=== PATIENT | male | born 1970 | race Caucasian/White ===

== ENCOUNTER 2024-11-12 17:06 | Emergency (ER) | payer BC, SELFPAY ==
[2024-11-12 17:19] VITALS: BP 162/94
[2024-11-12 17:49] LABS: % Basophils 0.9 % (0-2); % Eosinophils 1.4 % (0-6); % Immature Granulocytes 0.7 % (0-0.5); % Lymphocytes 24.6 % (20.5-51.1); % Monocytes 9.4 % (1.7-9.3); Absolute Basophils 0.1 10^3/uL (0-0.2); Absolute Eosinophils 0.1 10^3/uL (0-0.7); Absolute Immature Granulocytes 0.1 10^3/uL (0-0.05); Absolute Monocytes 0.8 10^3/uL (0.1-0.6); Absolute Neutrophils 5.1 10^3/uL (1.4-6.5); Hematocrit 50.3 % (39.0-52.0); Hemoglobin 17.5 g/dL (13.0-18.0); Mean Corp Hgb Conc. 34.8 g/dL (33.0-37.0); Mean Corpuscular Hgb 30.3 pg (27.0-31.0); Mean Corpuscular Volume 87.2 fL (80.0-94.0); Mean Platelet Volume 9.7 fL (7.4-10.4); Nucleated Red Blood Cells % 0 % (-); Platelet Count 205 10^3/uL (130-400); Red Blood Cell Count 5.77 10^6/uL (4.70-6.10); Red Cell Dist. Width 12.7 % (11.5-14.5)
[2024-11-12 18:04] LABS: ALT (SGPT) 64 U/L (0-50); AST (SGOT) 43 U/L (17-59); Albumin 4.2 g/dl (3.5-5.0); Alkaline Phosphatase 54 U/L (38-126); Blood Urea Nitrogen 14 mg/dl (9-20); Calcium 9.2 mg/dl (8.4-10.2); Carbon Dioxide 23 mmol/L (22-30); Chloride 104 mmol/L (98-107); Glucose 125 mg/dl (70-99); Potassium 4.7 mmol/L (3.5-5.1); Sodium 136 mmol/L (135-145); Total Bilirubin 0.5 mg/dl (0.2-1.3); Total Protein 6.8 g/dl (6.3-8.2); eGFR > 60.00
[2024-11-12 18:15] LABS: Troponin I 0.012 ng/ml
[2024-11-12 20:38] VITALS: BP 148/97
[2024-11-12 20:40] VITALS: BMI 37.8
--- NOTE | 2024-11-12 20:58 | ED.GENMED ---
History of Present Illness
General
Chief Complaint: Chest Pain
Source: patient
Exam Limitations: none
Time Seen by Provider: 11/12/24 20:48
History of Present Illness
History of Present Illness:
See MDM
Past History
Past History
ED Past Medical History: Other (DVT)
ED Past Surgical History: Orthopedic
Social History
Tobacco: Non-smoker
Alcohol: None
Phy Exam
Physical Exam
Physical Exam:
See MDM
Scores
Heart Score for Chest Pain Patients
STEMI patient?: No
History: Slightly or Non-Suspicious
ECG: Normal
Age: >45 - <65 years
Risk Factors: 1 or 2 Risk Factors
Troponin: </= Normal Limit
Heart Score for Chest Pain Patients: 2
Heart Score Risk: 2.5% MACE over next 6 weeks
Course
Orders/Labs/Results
Orders:
Orders
11/12/24 17:14
Electrocardiogram (*1) Urgent
Reason for Study: Chest Pain
EKG- Treatment ONCE
11/12/24 17:35
Complete Blood Count/With Diff Urgent
Comprehensive Metabolic Panel Urgent
Troponin I Urgent
11/12/24 21:16
Troponin I Urgent
Abnormal Lab Results
11/12/24
17:35
Abs Immat Gran (auto) 0.1 H 10^3/uL
(0-0.05)
Absolute Monos (auto) 0.8 H 10^3/uL
(0.1-0.6)
Immature Gran % 0.7 H %
(0-0.5)
Monocytes % 9.4 H %
(1.7-9.3)
Glucose 125 H mg/dl
(70-99)
ALT 64 H U/L
(0-50)
11/12/24 17:35
11/12/24 17:35
Vital Signs
Initial and Last Documented VS:
Initial Vital Signs
Temp Pulse Resp BP Pulse Ox
98.5 F 98 18 162/94 98
11/12/24 17:19 11/12/24 17:19 11/12/24 17:19 11/12/24 17:19 11/12/24 17:19
Last Documented Vital Signs
Temp Pulse Resp BP Pulse Ox
98.5 F 86 10 162/94 97
11/12/24 17:19 11/12/24 20:30 11/12/24 20:30 11/12/24 17:19 11/12/24 20:40
MDM/Problems Addressed
Differential Diagnosis Includes:
HPI and MDM Narrative:
54-year-old male presenting with resolved chest pain. Around 3 PM, he was waxing his car and started to develop chest pain. Patient is already get worried that this heart related symptoms are not worse with exertion. On arrival, symptoms have
improved and he is currently chest pain-free. EKG negative and troponin negative. Given duration of symptoms, will obtain second troponin. He states this happened a couple years ago when he had a stress test which was negative
Physical exam
General: Well appearing and non-toxic
HEENT: protecting airway
Neck: appears supple
CV: No evidence of cyanosis. Regular rate and rhythm
Resp: No accessory muscle use
Abd: Non-distended
Extremities: No deformities. No leg edema or tenderness
Neuro: alert
Psych: Normal affect
Skin: Intact
Problems Addressed including Acute and Chronic Conditions affecting care:
1. Resolved chest pain
Acuity: acute
Prognosis: stable
Details: Likely musculoskeletal. Will obtain 2 troponin rule out
Updates
Troponin negative x 2. Patient remains symptom-free and feels comfortable going home.
Differential Diagnosis (but not limited to): Noncardiac chest pain, ACS, musculoskeletal pain
Testing considered: Chest x-ray but all symptoms resolve
Drug therapy (if applicable): OTC meds, please see d/c instruction regarding Rx drugs
Amount and/or Complexity of Data Reviewed
Clinical info obtained from: Patient
External data reviewed: N/A
Labs I independently reviewed (but not limited to): Normal troponin
Radiology: N/A
Pulse Ox: not hypoxic
EKG independently reviewed: N/A
Sliver Former: N/A
Critical Care: N/A
Risk of Complication:
Social Determinants of health: Good social support
Discussed with other providers: N/A
Escalation of Care includes Admit/Obs: After being observed in the Emergency Department, pt stable for discharge.
Occasional wrong word or 'sound a like' substitutions may have occurred due to the inherent limitations of voice recognition software. Read the chart carefully and recognize, using context, where substitutions have occurred.
*Critical Care Note
Total Time (30-74mins, 75-104mins- exclusive of procedures): Not Applicable
ED Attending Note
-
Portions of this chart may have been created with voice recognition software.� Occasional wrong word or��sound alike� substitutions may have occurred due to the inherent limitations of voice recognition software.
Discharge Plan
Departure
Patient Disposition: Home (Routine Discharge)
Date of Disposition: 11/12/24
Time of Disposition: 21:57
Patient with high blood pressure during this ER visit?: Yes
Discharge Problem:
Chest pain
Instructions: Chest Pain PCP Follow Up, BLOOD PRESSURE
Referrals:
Osbaldo Bull MD [Family Provider] -
Activity Restrictions/Additional Instructions:
Please return for any worsening symptoms.
You may return at any time if you have further concerns.
Please follow up with your doctor at the first available appointment, preferably this week.
Thank you for choosing [facility].
Interventions
Interventions:
*Risk Screen - Suicide Last Done: 11/12/24 17:20
*General Assessment Last Done: 11/12/24 17:19
*Neglect/Abuse Screening Last Done: 11/12/24 17:19
ED- Fall Risk Assessment Last Done: 11/12/24 20:40
*ED COVID-19 Vaccine History Last Done: 11/12/24 17:19
ED- Cardiac Assessment Last Done: 11/12/24 20:40
Discharge Date and Time
Print Language: KOREAN
[2024-11-12 21:49] LABS: Troponin I 0.013 ng/ml
== END 2024-11-12 22:30 | disposition home or self-care (01) ==
LOC: EMR 17:06
PROVIDERS: EMERGENCY PHYSICIAN Student in an Organized Health Care Education/Training Program; FAMILY PHYSICIAN Family Medicine
DX: R07.9 Chest pain, unspecified (principal); R03.0 Elevated blood-pressure reading, without diagnosis of hypertension; Z86.718 Personal history of other venous thrombosis and embolism
CPT/HCPCS: 99283; 80053; 84484; 85025; 93005